=== PATIENT | female | born 1940 | race Hispanic/Latino ===

== ENCOUNTER 2020-08-30 15:38 | Inpatient (IN) | payer OTHER ==
[~2020-08-30] VITALS: Ht 154.9 cm; Wt 80.4 kg
[2020-08-30 16:28] VITALS: BP 107/41
[2020-08-30] MEDS ORDERED: METOCLOPRAMIDE 10 MG/2 ML VIAL IVP ONE (17:00)
[2020-08-30] MEDS ORDERED: DiphenhydrAMINE HCL 50 MG/ML VIAL IV ONE (17:00)
[2020-08-30] MEDS ORDERED: 0.9%NACL 1000ML 1,000 ML IV ONE ×2 (17:00→19:07)
[2020-08-30 17:47] LABS: BASOPHILS % (AUTO) 0.2 % (0.0-5.0); EOSINOPHILS % (AUTO) 0.1 % (0.0-8.0); HEMATOCRIT 38.8 % (36-48); MEAN CORPUSCULAR HEMOGLOBIN 31.4 pg (27.0-33.0); MEAN CORPUSCULAR HGB CONC 33.5 g/dL (32.0-36.0); MEAN CORPUSCULAR VOLUME 93.7 fL (79-99); MONOCYTES % (AUTO) 15.7 % (3.0-13.0); NEUTROPHILS % (AUTO) 32.7 % (40.0-77.0); PLATELET COUNT (AUTO) 192 K/uL (130-400); RED BLOOD CELL COUNT(AUTO) 4.14 MIL/uL (4.00-5.50); RED CELL DISTRIBUTION WIDTH 12.8 % (11.0-15.5); WHITE BLOOD COUNT (AUTO) 18.5 K/uL (4.8-10.8)
[2020-08-30 17:58] LABS: POTASSIUM 3.9 mmol/L (3.5-5.1)
[2020-08-30 18:08] LABS: ALBUMIN 3.8 g/dL (3.5-5.0); TOTAL PROTEIN, SERUM 7.3 g/dL (6.0-8.3)
[2020-08-30 19:01] VITALS: BP 132/59
[2020-08-30] MEDS ORDERED: METOCLOPRAMIDE 10 MG/2 ML VIAL ONE (19:07)
[2020-08-30] MEDS ORDERED: DiphenhydrAMINE HCL 50 MG/ML VIAL ONE (19:11)
[2020-08-30 19:32] LABS: INR 1.12 (0.85-1.15); PROTHROMBIN TIME 12.1 SEC (9.6-11.6)
[2020-08-30 19:33] LABS: PARTIAL THROMBOPLASTIN TIME 29.3 SEC (26.3-35.5)
[2020-08-30 19:51] LABS: APPEARANCE,URINE Clear (CLEAR); BILIRUBIN,URINE Negative (NEGATIVE); COLOR,URINE Yellow (YELLOW); GLUCOSE, URINE (UA) Negative (NEGATIVE); KETONES,URINE Trace mg/dL (NEGATIVE); LEUKOCYTE ESTERASE ,URINE Negative (NEGATIVE); NITRATE,URINE Negative (NEGATIVE); OCCULT BLOOD,URINE Negative (NEGATIVE); PH,URINE 7.5 (5.0-8.0); PROTEIN,URINE Negative (NEGATIVE)
[2020-08-30] MEDS ORDERED: LORAZEPAM 2 MG/ML 1 ML VIAL IM ONE (20:00)
[2020-08-30] MEDS ORDERED: PROMETHAZINE HCL 25 MG/ML 1ML AMPULE IM SCH (20:00)
[2020-08-30 20:44] VITALS: BP 114/54
[2020-08-30] MEDS ORDERED: MAG/ALUM/SIMETH 30 ML UDCUP PO PRN (20:45)
[2020-08-30] MEDS ORDERED: ONDANSETRON 4MG INJ IV PRN (20:45)
[2020-08-30] MEDS ORDERED: HYDRALAZINE 20MG/ML VIAL IV PRN (20:45)
[2020-08-30] MEDS ORDERED: HYDROCODONE/ACETAMINOPHEN 5/325 MG TAB PO PRN (20:45)
[2020-08-30] MEDS ORDERED: LACTULOSE 20 GM/30 ML UDCUP PO PRN (20:45)
[2020-08-30] MEDS ORDERED: ACETAMINOPHEN 325 MG TAB PO PRN ×2 (20:45)
[2020-08-30] MEDS ORDERED: MORPHINE 4 MG SYG IV PRN (20:45)
[2020-08-30] MEDS ORDERED: GUAIFENESIN-DM 200/20 MG 10 ML PO PRN (20:45)
[2020-08-30] MEDS ORDERED: NITROGLYCERIN 0.4 MG SL TAB SL PRN (20:45)
[2020-08-30] MEDS ORDERED: DIPHENHYDRAMINE HCL 25 MG CAPSULE PO PRN (20:45)
[2020-08-30] MEDS ORDERED: CEFTRIAXONE 1G VIAL IV SCH (20:45)
[2020-08-30] MEDS ORDERED: LACTATED RINGERS 1000ML 1,000 ML IV SCH (20:45)
[2020-08-30] MEDS ORDERED: ACYCLOVIR 500 MG VIAL 500 MG in 0.9%NACL 100ML 100 ML IV SCH (21:00)
[2020-08-30] MEDS ORDERED: COMPOUND IV MISC 1 EACH IVSOLN MISC PRN (21:00)
[2020-08-30] MEDS ORDERED: ACYCLOVIR OINTMENT 30GM TP SCH (21:00)
[2020-08-30] MEDS: BENZONATATE 100 MG CAPSULE PO SCH (21:00)
[2020-08-30] MEDS: ACYCLOVIR OINTMENT 30GM TP SCH (21:00)
[2020-08-30] MEDS: ACYCLOVIR 500 MG VIAL 500 MG in 0.9%NACL 100ML 100 ML IV SCH (22:16)
[2020-08-30] MEDS ORDERED: 0.9%NACL 50ML 50 ML IV ONE (23:12)
[2020-08-31 02:57] VITALS: BP 126/50
[2020-08-31 03:59] VITALS: BP 132/65
[2020-08-31] MEDS: ACYCLOVIR 500 MG VIAL 500 MG in 0.9%NACL 100ML 100 ML IV SCH ×4 (04:01→21:00)
[2020-08-31 06:13] VITALS: BP 133/65
[2020-08-31 08:44] LABS: HEMATOCRIT 34.3 % (36-48); MEAN CORPUSCULAR HEMOGLOBIN 31.1 pg (27.0-33.0); MEAN CORPUSCULAR HGB CONC 33.5 g/dL (32.0-36.0); MEAN CORPUSCULAR VOLUME 92.7 fL (79-99); RED BLOOD CELL COUNT(AUTO) 3.7 MIL/uL (4.00-5.50); RED CELL DISTRIBUTION WIDTH 13.2 % (11.0-15.5); WHITE BLOOD COUNT (AUTO) 16.2 K/uL (4.8-10.8)
[2020-08-31] MEDS ORDERED: ENOXAPARIN SODIUM 40 MG/0.4 ML SYRINGE SQ SCH (09:00)
[2020-08-31] MEDS: BENZONATATE 100 MG CAPSULE PO SCH (09:10)
[2020-08-31] MEDS: ACYCLOVIR OINTMENT 30GM TP SCH ×2 (09:11→21:00)
[2020-08-31] MEDS ORDERED: PROMETHAZINE HCL 25 MG/ML 1ML AMPULE IM SCH (09:15)
[2020-08-31] MEDS ORDERED: DOXYCYCLINE 100MG IVPB (VIAL) IVPB SCH (11:00)
[2020-08-31] MEDS ORDERED: 0.9% NACL 250ML IVPB SCH (11:00)
[2020-08-31] MEDS ORDERED: LORA10TA7 PO (12:02)
[2020-08-31] MEDS ORDERED: CALQUENCE PO (12:02)
[2020-08-31] MEDS ORDERED: ALLO100T PO (12:02)
[2020-08-31] MEDS ORDERED: METO5TAB2 PO (12:02)
[2020-08-31] MEDS ORDERED: APIX5TAB PO (12:02)
[2020-08-31] MEDS ORDERED: ACYC-138 PO (12:03)
[2020-08-31] MEDS ORDERED: PANT40TA54 PO (12:03)
[2020-08-31] MEDS ORDERED: ATOR10 PO (12:03)
[2020-08-31] MEDS: DOXYCYCLINE 100MG+NS 250ML 250 ML IV SCH ×2 (12:30→23:48)
[2020-08-31 14:36] VITALS: BP 139/72
[2020-08-31] MEDS ORDERED: POTASSIUM CHLORIDE 20MEQ/100ML 100 ML IV PRN ×2 (15:00)
[2020-08-31] MEDS ORDERED: POTASSIUM CHLORIDE 10% ELIXIR 20 MEQ/15 ML UDCUP PO PRN (15:00)
[2020-08-31] MEDS ORDERED: GLUCAGON 1MG KIT 1 MG ML IM PRN (15:00)
[2020-08-31] MEDS ORDERED: LIDOCAINE HCL-MPF 1% 2ML VIAL IV PRN ×2 (15:00)
[2020-08-31] MEDS ORDERED: DIPHENHYDRAMINE HCL 25 MG CAPSULE PO ONE (15:00)
[2020-08-31] MEDS ORDERED: DEXTROSE 50%-WATER 50 ML DISP.SYRIN IV PRN (15:00)
[2020-08-31] MEDS ORDERED: LORATIDINE 10 MG PO SCH (15:15)
[2020-08-31] MEDS ORDERED: [UNRECOGNIZED DRUG - REMARK] MISC ONE (15:30)
[2020-08-31] MEDS: ONDANSETRON 4MG INJ IVP PRN (15:46)
[2020-08-31] MEDS: MORPHINE 2 MG SYG IVP PRN (15:46)
[2020-08-31] MEDS: INSULIN HUMULIN R 100 UNIT/ML 3ML SQ SCH ×2 (16:30→21:00)
[2020-08-31 18:14] VITALS: BP 135/85
[2020-08-31 21:00] VITALS: BP 118/64
[2020-08-31] MEDS: APIXABAN 5 MG TABLET PO SCH (21:00)
[2020-08-31] MEDS: ATORVASTATIN 10 MG TABLET PO SCH (21:00)
[2020-08-31] MEDS: CALQUENCE 100 MG PO SCH (21:00)
[2020-08-31] MEDS ORDERED: GABAPENTIN 300 MG CAPSULE PO SCH (23:15)
[2020-09-01 02:15] VITALS: BP 122/64
[2020-09-01] MEDS: ACYCLOVIR 500 MG VIAL 500 MG in 0.9%NACL 100ML 100 ML IV SCH ×4 (03:00→21:48)
[2020-09-01] MEDS ORDERED: LACTATED RINGERS 1000ML 1,000 ML IV ONE (05:11)
[2020-09-01 05:38] VITALS: BP 126/61
[2020-09-01 05:47] LABS: CREATININE 0.8 mg/dL (0.5-1.5); HEMATOCRIT 34.4 % (36-48); MEAN CORPUSCULAR HEMOGLOBIN 30.8 pg (27.0-33.0); MEAN CORPUSCULAR HGB CONC 33.7 g/dL (32.0-36.0); MEAN CORPUSCULAR VOLUME 91.2 fL (79-99); POTASSIUM 3.6 mmol/L (3.5-5.1); RED BLOOD CELL COUNT(AUTO) 3.77 MIL/uL (4.00-5.50); RED CELL DISTRIBUTION WIDTH 12.7 % (11.0-15.5); WHITE BLOOD COUNT (AUTO) 14.9 K/uL (4.8-10.8)
[2020-09-01] MEDS: INSULIN HUMULIN R 100 UNIT/ML 3ML SQ SCH ×4 (07:30→21:00)
[2020-09-01 07:51] VITALS: BP 106/53
[2020-09-01] MEDS: CALQUENCE 100 MG PO SCH ×2 (08:39→21:48)
[2020-09-01] MEDS: APIXABAN 5 MG TABLET PO SCH ×2 (09:00→21:48)
[2020-09-01] MEDS: FAMOTIDINE 20MG TAB PO SCH (09:00)
[2020-09-01] MEDS: GABAPENTIN 300 MG CAPSULE PO SCH ×4 (09:00→21:48)
[2020-09-01] MEDS: ALLOPURINOL 100 MG TABLET PO SCH (09:00)
[2020-09-01] MEDS: ACYCLOVIR OINTMENT 30GM TP SCH (09:01)
[2020-09-01] MEDS: MORPHINE 2 MG SYG IVP PRN (10:05)
[2020-09-01] MEDS: ONDANSETRON 4MG INJ IVP PRN (10:05)
[2020-09-01] MEDS ORDERED: SOLU-MEDROL 125MG VIAL IM ONE (10:15)
[2020-09-01] MEDS ORDERED: AMITRIPTYLINE 25 MG TABLET PO SCH (10:15)
[2020-09-01] MEDS: DOXYCYCLINE 100MG+NS 250ML 250 ML IV SCH ×2 (14:00→22:56)
[2020-09-01] MEDS ORDERED: PIP/TAZ ZOSYN 3.375G 3.375 GM VIAL IVPB SCH (14:00)
[2020-09-01] MEDS: LACTATED RINGERS 1000ML 1,000 ML IV SCH ×3 (14:29→23:24)
[2020-09-01 14:33] LABS: AMYLASE 40 U/L (25-115); LIPASE 68 U/L (114-286); TRIGLYCERIDES 44 mg/dL (30-200)
[2020-09-01 15:46] VITALS: BP 110/59
[2020-09-01] MEDS ORDERED: 0.9%NACL 50ML 50 ML IV ONE (16:09)
[2020-09-01] MEDS: ZOSYN 3.375GM+NS 50ML 50 ML IV SCH ×2 (16:15→22:38)
[2020-09-01] MEDS: ATORVASTATIN 10 MG TABLET PO SCH (21:48)
[2020-09-01 22:01] VITALS: BP 131/61
[2020-09-01 22:30] VITALS: BP 153/70
[2020-09-02] VITALS (7 sets, daily range): BP systolic 111–134; BP diastolic 53–68
[2020-09-02] MEDS: ACYCLOVIR 500 MG VIAL 500 MG in 0.9%NACL 100ML 100 ML IV SCH ×4 (02:54→20:44)
[2020-09-02] MEDS: LACTATED RINGERS 1000ML 1,000 ML IV SCH ×4 (02:54→20:00)
[2020-09-02 05:09] LABS: MEAN CORPUSCULAR HEMOGLOBIN 31.4 pg (27.0-33.0); MEAN CORPUSCULAR HGB CONC 34.4 g/dL (32.0-36.0); MEAN CORPUSCULAR VOLUME 91.2 fL (79-99); RED BLOOD CELL COUNT(AUTO) 3.73 MIL/uL (4.00-5.50); RED CELL DISTRIBUTION WIDTH 12.7 % (11.0-15.5); WHITE BLOOD COUNT (AUTO) 11.3 K/uL (4.8-10.8)
[2020-09-02] MEDS: ZOSYN 3.375GM+NS 50ML 50 ML IV SCH ×3 (05:24→22:58)
[2020-09-02 05:43] LABS: ALBUMIN 2.8 g/dL (3.5-5.0); BILIRUBIN,DIRECT 0.2 mg/dL (0.0-0.3); BILIRUBIN,TOTAL 0.8 mg/dL (0.2-1.0); CREATININE 0.9 mg/dL (0.5-1.5); POTASSIUM 3.9 mmol/L (3.5-5.1); TOTAL PROTEIN, SERUM 5.8 g/dL (6.0-8.3)
[2020-09-02] MEDS: INSULIN HUMULIN R 100 UNIT/ML 3ML SQ SCH ×4 (05:57→20:46)
[2020-09-02] MEDS: AMITRIPTYLINE 25 MG TABLET PO SCH (10:06)
[2020-09-02] MEDS: FAMOTIDINE 20MG TAB PO SCH (10:07)
[2020-09-02] MEDS: APIXABAN 5 MG TABLET PO SCH ×2 (10:07→20:44)
[2020-09-02] MEDS: ALLOPURINOL 100 MG TABLET PO SCH (10:07)
[2020-09-02] MEDS: GABAPENTIN 300 MG CAPSULE PO SCH ×3 (10:07→20:43)
[2020-09-02] MEDS: CALQUENCE 100 MG PO SCH ×2 (10:08→20:53)
[2020-09-02] MEDS: DOXYCYCLINE 100MG+NS 250ML 250 ML IV SCH ×2 (11:58→22:58)
[2020-09-02] MEDS: MORPHINE 2 MG SYG IVP PRN ×2 (12:50→22:51)
[2020-09-02] MEDS: ATORVASTATIN 10 MG TABLET PO SCH (20:44)
[2020-09-02] MEDS: SOLU-MEDROL 125MG VIAL IVP SCH (22:58)
[2020-09-03] MEDS: LACTATED RINGERS 1000ML 1,000 ML IV SCH ×4 (01:00→16:00)
[2020-09-03] MEDS: ACYCLOVIR 500 MG VIAL 500 MG in 0.9%NACL 100ML 100 ML IV SCH ×2 (03:42→09:47)
[2020-09-03 04:00] VITALS: BP 118/57
[2020-09-03 05:05] LABS: HEMATOCRIT 32.8 % (36-48); MEAN CORPUSCULAR HEMOGLOBIN 30.5 pg (27.0-33.0); MEAN CORPUSCULAR HGB CONC 33.5 g/dL (32.0-36.0); MEAN CORPUSCULAR VOLUME 90.9 fL (79-99); PLATELET COUNT (AUTO) 164 K/uL (130-400); RED BLOOD CELL COUNT(AUTO) 3.61 MIL/uL (4.00-5.50); RED CELL DISTRIBUTION WIDTH 13.2 % (11.0-15.5); WHITE BLOOD COUNT (AUTO) 21.9 K/uL (4.8-10.8)
[2020-09-03 05:18] LABS: ALBUMIN 2.6 g/dL (3.5-5.0); CREATININE 0.9 mg/dL (0.5-1.5); POTASSIUM 3.2 mmol/L (3.5-5.1); TOTAL PROTEIN, SERUM 5.1 g/dL (6.0-8.3)
[2020-09-03 05:55] LABS: BASOPHILS % (MANUAL) 1 % (0-2); LYMPHOCYTES % (MANUAL) 70 % (22-44); MAN.DIFF COMMENT-IMPRESSION MANUAL DIFFERENTIAL; MONOCYTES % (MANUAL) 5 % (2-9); SEGMENTED NEUTROPHILS % 24 % (40-70)
[2020-09-03] MEDS: INSULIN HUMULIN R 100 UNIT/ML 3ML SQ SCH ×4 (06:35→21:00)
[2020-09-03] MEDS: ZOSYN 3.375GM+NS 50ML 50 ML IV SCH ×2 (06:35→14:42)
[2020-09-03] MEDS: KCL 20 MEQ ERTAB PO PRN ×3 (06:36→18:36)
[2020-09-03] MEDS: MORPHINE 2 MG SYG IVP PRN (06:44)
[2020-09-03 07:22] VITALS: BP 132/63
[2020-09-03] MEDS: AMITRIPTYLINE 25 MG TABLET PO SCH (09:48)
[2020-09-03] MEDS: APIXABAN 5 MG TABLET PO SCH ×2 (09:48→21:41)
[2020-09-03] MEDS: SOLU-MEDROL 125MG VIAL IVP SCH ×2 (09:48→21:42)
[2020-09-03] MEDS: FAMOTIDINE 20MG TAB PO SCH (09:49)
[2020-09-03] MEDS: GABAPENTIN 300 MG CAPSULE PO SCH ×3 (09:49→21:42)
[2020-09-03] MEDS: ALLOPURINOL 100 MG TABLET PO SCH (09:49)
[2020-09-03] MEDS: CALQUENCE 100 MG PO SCH ×2 (09:50→21:00)
[2020-09-03] MEDS: DOXYCYCLINE 100MG+NS 250ML 250 ML IV SCH (11:15)
[2020-09-03 11:34] VITALS: BP 135/67
[2020-09-03 15:25] VITALS: BP 130/72
[2020-09-03 20:00] VITALS: BP 113/44
[2020-09-03] MEDS: ATORVASTATIN 10 MG TABLET PO SCH (21:41)
[2020-09-03] MEDS: VALACYCLOVIR HCL 500 MG TABLET PO SCH (21:42)
[2020-09-03] MEDS: DOXYCYCLINE HYCLATE 100 MG TABLET PO SCH (21:42)
[2020-09-03] MEDS ORDERED: ACETAMINOPHEN 325 MG TAB PO PRN ×2 (22:15)
[2020-09-03] MEDS: ONDANSETRON 4MG INJ IVP PRN (22:57)
[2020-09-04] VITALS: BP 159/80
[2020-09-04 04:00] VITALS: BP 110/56
[2020-09-04] MEDS: INSULIN HUMULIN R 100 UNIT/ML 3ML SQ SCH ×3 (06:34→16:30)
[2020-09-04 08:00] VITALS: BP 119/58
[2020-09-04] MEDS: VALACYCLOVIR HCL 500 MG TABLET PO SCH (08:41)
[2020-09-04] MEDS: AMITRIPTYLINE 25 MG TABLET PO SCH (08:42)
[2020-09-04] MEDS: DOXYCYCLINE HYCLATE 100 MG TABLET PO SCH (08:42)
[2020-09-04] MEDS: ALLOPURINOL 100 MG TABLET PO SCH (08:42)
[2020-09-04] MEDS: FAMOTIDINE 20MG TAB PO SCH (08:42)
[2020-09-04] MEDS: APIXABAN 5 MG TABLET PO SCH (08:42)
[2020-09-04] MEDS: GABAPENTIN 300 MG CAPSULE PO SCH ×2 (08:42→13:18)
[2020-09-04] MEDS: CALQUENCE 100 MG PO SCH (08:43)
[2020-09-04] MEDS: SOLU-MEDROL 125MG VIAL IVP SCH (09:00)
[2020-09-04 10:42] LABS: HEMATOCRIT 35.3 % (36-48); MEAN CORPUSCULAR HEMOGLOBIN 31.2 pg (27.0-33.0); MEAN CORPUSCULAR HGB CONC 33.7 g/dL (32.0-36.0); MEAN CORPUSCULAR VOLUME 92.7 fL (79-99); RED BLOOD CELL COUNT(AUTO) 3.81 MIL/uL (4.00-5.50); RED CELL DISTRIBUTION WIDTH 13.3 % (11.0-15.5); WHITE BLOOD COUNT (AUTO) 8.3 K/uL (4.8-10.8)
[2020-09-04 10:49] LABS: POTASSIUM 4.3 mmol/L (3.5-5.1)
[2020-09-04 10:55] LABS: ALBUMIN 2.9 g/dL (3.5-5.0); BILIRUBIN,TOTAL 0.7 mg/dL (0.2-1.0); TOTAL PROTEIN, SERUM 5.9 g/dL (6.0-8.3)
[2020-09-04 11:57] VITALS: BP 113/61
[2020-09-04] MEDS ORDERED: TRAMADOL HCL 50 MG TABLET ONE (13:15)
[2020-09-04 16:00] VITALS: BP 124/65
[2020-09-04] MEDS ORDERED: DOXY100T2 PO (16:28)
[2020-09-04] MEDS ORDERED: AMIT25TA9 PO (16:28)
[2020-09-04] MEDS ORDERED: GABA300C PO (16:28)
[2020-09-04] MEDS ORDERED: VALA500T PO (16:28)
[2020-09-05] MEDS ORDERED: ASPIRIN 81MG CHEW TAB PO SCH (09:00)
== END 2020-09-04 18:30 | disposition home or self-care (01) | DRG 595 ==
LOC: EDH 15:38 → OBSVTOIN 20:37 → EDHIP 20:37 → 3AH 09-01 21:42
PROVIDERS: ADMIT Internal Medicine Critical Care Medicine; ATTEND Internal Medicine Critical Care Medicine
DX: B02.9 Zoster without complications (principal); K85.90 Acute pancreatitis without necrosis or infection, unspecified; D84.9 Immunodeficiency, unspecified; C91.10 Chronic lymphocytic leukemia of B-cell type not having achieved remission; L03.211 Cellulitis of face; E86.0 Dehydration; M54.2 Cervicalgia; E11.9 Type 2 diabetes mellitus without complications; I10 Essential (primary) hypertension; G58.8 Other specified mononeuropathies; I48.91 Unspecified atrial fibrillation; Z60.2 Problems related to living alone; Z68.33 Body mass index [BMI] 33.0-33.9, adult; Z88.8 Allergy status to other drugs, medicaments and biological substances; Z79.899 Other long term (current) drug therapy; Z79.01 Long term (current) use of anticoagulants; Z90.49 Acquired absence of other specified parts of digestive tract
CPT/HCPCS: 36415; 70450; 70551; 71045; 74176; 76705; 80048; 80053; 80061; 80076; 81003; 82150; 82948; 83605; 83690; 84132; 84145; 84478; 84484; 85025; 85027; 85610; 85651; 85730; 87040; 93005; G0378; J0133; J0696; J1200; J1650; J2060; J2270; J2405; J2543; J2550; J2765; J2930; J3480; J3490; J7030; J7120

== ENCOUNTER → 2022-11-23 | Outpatient (CLI) | payer OTHER ==
[~2022-11-23] MED LIST: ALLO100T PO; AMIT25TA9 PO; APIX5TAB PO; ATOR10 PO; CALQUENCE PO; DOXY100T2 PO; GABA300C PO; LORA10TA7 PO; METO5TAB2 PO; PANT40TA54 PO; VALA500T PO
[2022-11-23 15:29] LABS: PLATELET FUNCTION ANALYSIS EPI 110 SEC (55-192)
[2022-11-23 15:37] LABS: HEMATOCRIT 38.8 % (36-48); PFA INTERPRETATION PFA INTERPRETATION; PLATELET COUNT (AUTO) 157 K/uL (130-400)
== END | disposition home or self-care (01) ==
LOC: LAB 14:12
PROVIDERS: ATTEND Internal Medicine Medical Oncology
DX: C91.10 Chronic lymphocytic leukemia of B-cell type not having achieved remission (principal)
CPT/HCPCS: 36415; 85576

== ENCOUNTER → 2023-01-03 | Outpatient (CLI) | payer OTHER ==
[2023-01-03 16:20] LABS: BASOPHILS # (AUTO) 0.03 K/uL (0.00-0.20); BASOPHILS % (AUTO) 0.3 % (0.0-5.0); EOSINOPHILS # (AUTO) 0.05 K/uL (0.00-0.70); EOSINOPHILS % (AUTO) 0.4 % (0.0-8.0); HEMATOCRIT 40.7 % (36-48); IMMATURE GRANULOCYTE ABSOLUTE 0.02 K/uL (0-1); LYMPHOCYTES # (AUTO) 7.4 K/uL (1.0-4.8); LYMPHOCYTES % (AUTO) 64.1 % (21.0-51.0); MEAN CORPUSCULAR HGB CONC 32.2 g/dL (32.0-36.0); MEAN CORPUSCULAR VOLUME 93.3 fL (79-99); MONOCYTES # (AUTO) 0.7 K/uL (0.1-1.0); NEUTROPHILS # (AUTO) 3.4 K/uL (1.8-7.7); PLATELET COUNT (AUTO) 177 K/uL (130-400); RED BLOOD CELL COUNT(AUTO) 4.36 MIL/uL (4.00-5.50); RED CELL DISTRIBUTION WIDTH 14.4 % (11.0-15.5); WHITE BLOOD COUNT (AUTO) 11.6 K/uL (4.8-10.8)
[2023-01-03 17:05] LABS: BAND NEUTROPHILS % (MANUAL) 1 % (0-2); LYMPHOCYTES % (MANUAL) 32 % (22-44); MONOCYTES % (MANUAL) 2 % (2-9); REACTIVE LYMPHOCYTES 29 % (0-0); SEGMENTED NEUTROPHILS % 36 % (40-70); TOTAL CELLS COUNTED 100
[2023-01-03 17:07] LABS: MAN.DIFF COMMENT-IMPRESSION MANUAL DIFFERENTIAL
== END | disposition home or self-care (01) ==
LOC: LAB 11:44
PROVIDERS: ATTEND Internal Medicine Cardiovascular Disease
DX: I10 Essential (primary) hypertension (principal)
CPT/HCPCS: 36415; 85025